=== PATIENT | female | born 1980 | race Caucasian/White ===

== ENCOUNTER 2022-04-10 14:43 | Emergency (ER) | payer SELFPAY ==
[~2022-04-10] VITALS: Ht 172.7 cm; Wt 63.5 kg
[2022-04-10] MEDS ORDERED: IBUPROFEN 600 MG TAB PO STA (14:51)
== END 2022-04-10 15:31 | disposition home or self-care (01) ==
LOC: ER 14:53
DX: J02.9 Acute pharyngitis, unspecified (principal)
CPT/HCPCS: 0223U; 36415; 83518; 87070; 99283

== ENCOUNTER 2023-02-08 11:47 | Emergency (ER) | payer SELFPAY ==
[~2023-02-08] VITALS: Ht 172.7 cm; Wt 77.1 kg
[2023-02-08 12:05] VITALS: O2SAT 100
[2023-02-08] MEDS ORDERED: KETOROLAC TROMETHAMINE 30 MG/ML VIAL IV STA (12:10)
[2023-02-08] MEDS ORDERED: ONDANSETRON HCL INJ 2MG/ML 2ML 2 MG/ML VIAL IV PRN (12:15)
[2023-02-08] MEDS ORDERED: SODIUM CHLORIDE 0.9% 1000ML 1,000 ML IV ONE (12:15)
[2023-02-08 12:39] LABS: BASOPHILS # (AUTO) 0.1 (0.0-0.1); BASOPHILS % 1.1 % (0.0-1.0); EOSINOPHILS % 0.1 % (0.0-6.0); HEMATOCRIT 45.9 % (34.2-44.1); HEMOGLOBIN 15.5 g/dL (12.0-16.0); LYMPHOCYTES # (AUTO) 1.3 (1.0-3.2); LYMPHOCYTES % 16.2 % (18.0-39.1); MEAN CORPUSCULAR HEMOGLOBIN 30.2 pg (28-32); MEAN CORPUSCULAR HGB CONC 33.8 g/dL (31-35); MEAN CORPUSCULAR VOLUME 89.5 fL (81-99); MONOCYTES # (AUTO) 0.4 (0.2-0.8); MONOCYTES % 4.9 % (4.4-11.3); NEUTROPHILS # (AUTO) 6.1 (2.1-6.9); NEUTROPHILS % 77.3 % (38.7-80.0); PLATELET COUNT 275 x10e3/uL (140-360); RED BLOOD COUNT 5.13 x10e6/uL (3.6-5.1); RED CELL DISTRIBUTION WIDTH 13.2 % (11.7-14.4)
[2023-02-08 12:55] LABS: ALBUMIN 4.4 g/dL (3.5-5.0); ALBUMIN/GLOBULIN RATIO 1.6 (0.8-2.0); ANION GAP 12.8 mmol/L (8-16); CALCIUM 9.4 mg/dL (8.4-10.2); CREATININE, SERUM 0.92 mg/dL (0.57-1.11); POTASSIUM 3.8 mmol/L (3.5-5.1)
[2023-02-08] MEDS ORDERED: ONDANSETRON ODT4 MG PO (13:07)
[2023-02-08] MEDS ORDERED: FIORICET 50-301 EACH PO (13:07)
[2023-02-08 13:16] LABS: LIPASE 6 U/L (8-78)
== END 2023-02-08 13:27 | disposition home or self-care (01) ==
LOC: ER 11:52
DX: G43.909 Migraine, unspecified, not intractable, without status migrainosus (principal); E86.0 Dehydration; R11.2 Nausea with vomiting, unspecified; F17.200 Nicotine dependence, unspecified, uncomplicated
CPT/HCPCS: 36415; 80053; 83690; 84702; 85025; 99284; J1885; J2405; J7030